=== PATIENT | male | born 1970 | race Asian ===

== ENCOUNTER 2020-11-09 11:30 | Emergency (ER) | payer OTHER ==
[~2020-11-09] VITALS: Ht 160 cm; Wt 70.0 kg
--- NOTE | 2020-11-09 13:29 | PHYS DOC ---
Past Medical History Past Medical History: Hypertension Past Surgical History: No Surgical History Smoking Status: Never Smoker Alcohol Use: None General Adult EDM: Chief Complaint: MULTIPLE COMPLAINTS HPI: HPI: Patient is a 50 year old Moldovan speaking male with history of HTN who presents with 1 month of cough, shortness of breath, N/V, myalgias. He has developed left-sided chest pain that is worse when he coughs. He has difficulty describing the quality of the pain. Does not radiate. Denies fever/chills. Cough is not productive. No diarrhea. No sick contacts. Has been fully vaccinated for Covid. Second shot was 3 months ago. Denies sick contacts. Has not sought medical care until today. Review of Systems: Review of Systems: Constitutional: Denies fever or chills. [] Eyes: Denies change in visual acuity. [] HENT: Denies nasal congestion or sore throat. [] Respiratory: Reports cough and shortness of breath. [] Cardiovascular: Reports left-sided chest pain. Denies edema. [] GI: Denies abdominal pain. Reports nausea/vomiting. Denies bloody stools or diarrhea. [] : Denies dysuria. [] Musculoskeletal: Denies back pain or joint pain. Reports diffuse myalgias [] Integument: Denies rash. [] Neurologic: Denies headache, focal weakness or sensory changes. [] Endocrine: Denies polyuria or polydipsia. [] Lymphatic: Denies swollen glands. [] Psychiatric: Denies depression or anxiety. [] Heart Score: C/O Chest Pain: Yes HEART Score for Chest Pain: HEART Score for Chest Pain Response (Comments) Value History Slighlty/Non-Suspicious 0 Total 0 Risk Factors: Risk Factors: DM, Current or recent (<one month) smoker, HTN, HLP, family history of CAD, obesity. Risk Scores: Score 0 - 3: 2.5% MACE over next 6 weeks - Discharge Home Score 4 - 6: 20.3% MACE over next 6 weeks - Admit for Clinical Observation Score 7 - 10: 72.7% MACE over next 6 weeks - Early Invasive Strategies Allergies: Allergies: Allergies Coded Allergies Type Severity Reaction Last Updated Verified No Known Drug Allergies 11/09/20 No Physical Exam: PE: Constitutional: Slightly diaphoretic. Ill-appearing but nontoxic.. [] HENT: Normocephalic, atraumatic, bilateral external ears normal, oropharynx moist, no oral exudates, nose normal. [] Eyes: PERRLA, EOMI, conjunctiva normal, no discharge. [] Neck: Normal range of motion, no tenderness, supple, no stridor. [] Cardiovascular:Heart rate regular rhythm, no murmur [] Lungs & Thorax: Left-sided and expiratory wheezes, right-sided rhonchi without wheezes. Normal work of breathing [] Abdomen: Bowel sounds normal, soft, no tenderness, no masses, no pulsatile masses. [] Skin: Warm, dry, no erythema, no rash. [] Back: No tenderness, no CVA tenderness. [] Extremities: No tenderness, no cyanosis, no clubbing, ROM intact, no edema. [] Neurologic: Alert and oriented X 3, normal motor function, normal sensory function, no focal deficits noted. [] Psychologic: Affect normal, judgement normal, mood normal. [] Current Patient Data: Vital Signs: Vital Signs Date Time Temp Pulse Resp B/P (MAP) Pulse Ox O2 Delivery O2 Flow Rate FiO2 11/09/20 13:02 75 25 113/77 (89) 97 Room Air 11/09/20 12:56 97.8 97.8 EKG: EKG: [] Radiology/Procedures: Radiology/Procedures: [] Impression: [facility] [address] [place], [place] [id number] IMAGING REPORT Signed PATIENT: ALTAGRACIA CHU ACCOUNT: [id number] : 1970 LOCATION: ER AGE: 50 SEX: M EXAM STATUS: REG ER ORD. PHYSICIAN: FRANCISCO MEIER MD REASON: COUGH, SOB, MYALGIAS, LEFT CHEST PAIN PROCEDURE: CHEST AP ONLY XR CHEST 1V CLINICAL INDICATIONS: Reason: COUGH, shortness of breath, MYALGIAS, LEFT CHEST Comparison: None available. Findings: No acute lung infiltrate or pleural effusion or pulmonary edema or lung mass or pneumothorax is seen. The heart size, pulmonary vasculature, mediastinum and both shun are unremarkable. IMPRESSION: No acute radiographic abnormality is seen. Electronically signed by: Michi Ardon MD (11/09/2020 1:37 PM) [id number] DICTATED and SIGNED BY: MICHI ARDON MD DATE: 11/09/20 [id number] Course & Med Decision Making: Course & Med Decision Making Pertinent Labs and Imaging studies reviewed. (See chart for details) Patient is a 50-year-old male with history of HTN who presents with 1 month of cough, fatigue, shortness of breath, N/V and now with left-sided chest pain. On arrival is afebrile and hemodynamically stable. Satting 97+ percent on room air. Auscultatory exam asymmetric with wheezes on the left and rhonchi on the right. We will check CXR, CMP, CBC, EKG, troponin and Covid test. 1329 Chest x-ray clear. Blood work reassuring. Troponin negative. Covid test negative on rapid. Given his wheezing, cough, congestion for the last month feel this is likely a bronchitis. Possibly recovering from a previous COVID infection. Given the duration feel it is appropriate to treat with a course of steroids and doxycycline. Patient stable for discharge. 1504 PPDai Disclaimer: PPDai Disclaimer: This electronic medical record was generated, in whole or in part, using a voice recognition dictation system. Departure Departure Impression: Primary Impression: Bronchitis Disposition: HOME / SELF CARE / HOMELESS Condition: STABLE Additional Instructions: Your blood test and chest x-ray were clear. Your rapid Covid test was negative. We are doing a more accurate test that will take until tomorrow to result. Please self isolate till you know the results of this test. Given the duration of your symptoms we will treat you with a steroid (anti- inflammatory medication) and a an antibiotic (doxycycline). Please take the full course of each. Please return to the emergency department if you develop worsening symptoms. If you do not have a PCP, please call the number for the [facility] at [phone]. Scripts Prednisone (PREDNISONE) 50 Mg Tablet 1 TAB PO DAILY, #5 TAB Prov: FRANCISCO MEIER MD 11/09/20 Doxycycline Monohydrate (DOXYCYCLINE MONOHYDRATE) 100 Mg Capsule 1 CAP PO BID for 7 Days, #14 CAP Prov: FRANCISCO MEIER MD 11/09/20 FRANCISCO MEIER MD Nov 09, 2020 13:29
--- NOTE | 2020-11-09 13:39 | RAD ---
XR CHEST 1V CLINICAL INDICATIONS: Reason: COUGH, shortness of breath, MYALGIAS, LEFT CHEST Comparison: None available. Findings: No acute lung infiltrate or pleural effusion or pulmonary edema or lung mass or pneumothora x is seen. The heart size, pulmonary vasculature, mediastinum and both shun are unremarkable. IMPRESSION: No acute radiographic abnormality is seen. Electronically signed by: Prabhu Ardon MD (11/09/2020 1:37 PM) [id number]
[2020-11-09 14:15] LABS: BASO # 0.1 x10^3/uL (0.0-0.2); BASO % 1 % (0-3); EOS # 0.4 x10^3/uL (0.0-0.7); EOS % 5 % (0-3); HEMATOCRIT 40.6 % (39.0-53.0); HEMOGLOBIN 13.9 g/dL (13.0-17.5); LYMPH # 2.9 x10^3/uL (1.0-4.8); LYMPH % 39 % (24-48); MEAN CORPUSCULAR HEMOGLOBIN 30 pg (25-35); MEAN CORPUSCULAR HGB CONC 34 g/dL (31-37); MEAN CORPUSCULAR VOLUME 87 fL (79-100); MONO # 0.5 x10^3/uL (0.0-1.1); MONO % 6 % (0-9); NEUT # 3.7 x10^3/uL (1.8-7.7); NEUT % 49 % (31-73); PLATELET COUNT 214 x10^3/uL (140-400); RED BLOOD COUNT 4.69 x10^6/uL (4.30-5.70); RED CELL DISTRIBUTION WIDTH 14.3 % (11.5-14.5); WHITE BLOOD COUNT 7.6 x10^3/uL (4.0-11.0)
[2020-11-09 14:35] LABS: CALCIUM 8.6 mg/dL (8.5-10.1); GFR 78.8; POTASSIUM 4.3 mmol/L (3.5-5.1)
[2020-11-09 14:44] LABS: ALBUMIN 3.6 g/dL (3.4-5.0); ALBUMIN/GLOBULIN RATIO 0.9 (1.0-1.7); TOTAL BILIRUBIN 0.6 mg/dL (0.2-1.0); TOTAL PROTEIN 7.6 g/dL (6.4-8.2)
[2020-11-09] MEDS ORDERED: PRED50TA PO (15:41)
[2020-11-09] MEDS ORDERED: DOXY-181 PO (15:41)
[2020-11-09 15:55] VITALS: BP 121/77
--- NOTE | 2020-11-09 16:39 | EKG ---
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
--- NOTE | 2020-11-10 11:34 | NUR ---
IP: Attempted to contact pt concerning covid results. No answer, left a voicemail to return the call.
--- NOTE | 2020-11-11 10:03 | NUR ---
Attempted a send time to contact pt concerning covid results. Again no answer.
== END 2020-11-09 16:10 | disposition home or self-care (01) ==
LOC: ER 11:30
DX: J40 Bronchitis, not specified as acute or chronic (principal); Z20.822 Contact with and (suspected) exposure to COVID-19; I10 Essential (primary) hypertension
CPT/HCPCS: 36415; 71045; 80053; 84484; 85025; 87426; 93005; 99285; U0003; U0005

== ENCOUNTER → 2020-12-26 | Outpatient (CLI) | payer OTHER ==
[~2020-12-26] MED LIST: DOXY-181 PO; PRED50TA PO
--- NOTE | 2020-12-26 14:41 | KCIC ---
Single view of the chest. 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 Instructions: / History: Comparison: Chest radiograph November 09, 2020 Findings: The left hemidiaphragm is poorly delineated, and there is questionable mild lateral pleural thickening. Findings could reflect a small effusion or atelectasis. No pneumothorax is seen. Heart s ize is normal. No acute osseous changes are identified. IMPRESSION: Possible trace left basilar effusion or atelectasis. Consider follow-up two-view chest ra diograph versus CT for further evaluation. Electronically signed by: Jimmy Hua MD (12/26/2020 2:38 PM) [id number]
== END ==
LOC: KCIC 10:14
PROVIDERS: ATTEND Internal Medicine Pulmonary Disease
DX: R76.11 Nonspecific reaction to tuberculin skin test without active tuberculosis (principal)
CPT/HCPCS: 71045

== ENCOUNTER 2021-06-01 21:15 | Emergency (ER) | payer OTHER ==
[~2021-06-01] VITALS: Ht 167.6 cm; Wt 73.0 kg
[2021-06-01] MEDS ORDERED: ACETAMINOPHEN 500 MG TABLET PO ONE (21:30)
[2021-06-01] MEDS ORDERED: IV NORMAL SALINE 1000ML BAG 1,000 ML IV ONE (21:30)
[2021-06-01 21:35] VITALS: BP 143/78
--- NOTE | 2021-06-01 21:55 | RAD ---
XR CHEST 1V History: Reason: fever / Spl. Instructions: / History: Comparison: December 26, 2020 Findings: Mild multifocal opacities bilaterally. No pleural effusion. Unchanged right blunting of the costophre alex angle. Unchanged heart size. No pneumothorax. Impression: 1. Mild multifocal ill-defined opacities bilaterally concerning for pneumonia including viral pneumo marcelino. Electronically signed by: Latrell Andrade DO (06/01/2021 9:53 PM) [facility]
--- NOTE | 2021-06-01 22:35 | RAD ---
CT HEAD/BRAIN WO History: Reason: AMS / Spl. Instructions: / History: Comparison: None. Technique: Noncontrast CT imaging was performed of the head. Exposure: One or more of the following individualized dose reduction techniques were utilized for thi s examination: 1. Automated exposure control 2. Adjustment of the mA and/or kV according to patient size 3. Use of iterative reconstruction technique. Findings: No intracranial hemorrhage. No mass effect. No hydrocephalus. Extra-axial spaces are unremarkable. Imaged orbits are unremarkable. Imaged paranasal sinuses and mastoid air cells are clear. No acute ca lvarial fracture. Impression: 1. No acute intracranial abnormality. Electronically signed by: Latrell Andrade DO (06/01/2021 10:32 PM) [facility]
[2021-06-01 22:36] LABS: BASO % 1 % (0-3); EOS # 0.3 x10^3/uL (0.0-0.7); EOS % 4 % (0-3); HEMATOCRIT 42.3 % (39.0-53.0); HEMOGLOBIN 14.1 g/dL (13.0-17.5); LYMPH # 1.4 x10^3/uL (1.0-4.8); LYMPH % 17 % (24-48); MEAN CORPUSCULAR HEMOGLOBIN 29 pg (25-35); MEAN CORPUSCULAR HGB CONC 33 g/dL (31-37); MEAN CORPUSCULAR VOLUME 86 fL (79-100); MONO # 0.7 x10^3/uL (0.0-1.1); MONO % 8 % (0-9); NEUT # 5.7 x10^3/uL (1.8-7.7); NEUT % 70 % (31-73); PLATELET COUNT 218 x10^3/uL (140-400); RED BLOOD COUNT 4.93 x10^6/uL (4.30-5.70); RED CELL DISTRIBUTION WIDTH 14.2 % (11.5-14.5); WHITE BLOOD COUNT 8.1 x10^3/uL (4.0-11.0)
[2021-06-01 22:51] LABS: CALCIUM 8.3 mg/dL (8.5-10.1); CREATININE 1.4 mg/dL (0.7-1.3); GFR 53.4; POTASSIUM 3.8 mmol/L (3.5-5.1)
[2021-06-01 22:58] LABS: ALBUMIN 3.8 g/dL (3.4-5.0); ALBUMIN/GLOBULIN RATIO 0.9 (1.0-1.7); TOTAL BILIRUBIN 0.5 mg/dL (0.2-1.0); TOTAL PROTEIN 7.9 g/dL (6.4-8.2)
[2021-06-01 23:06] LABS: INFLUENZA A PATIENT POSITIVE (NEGATIVE); INFLUENZA B PATIENT NEGATIVE (NEGATIVE)
[2021-06-01] MEDS ORDERED: OSELTAMIVIR 75 MG CAPSULE PO STA (23:15)
[2021-06-01] MEDS ORDERED: cefTRIAXone IV Push 1 GM VIAL. IVP ONE (23:15)
[2021-06-01] MEDS ORDERED: guaiFENesin/CODEINE 100mg/10mg 5 ML LIQUID PO STA (23:17)
--- NOTE | 2021-06-01 23:25 | PHYS DOC ---
Past Medical History Past Medical History: Hypertension (YG VÁZQUEZ COOK CHILI) Past Surgical History: No Surgical History (YG VÁZQUEZ COOK CHILI) Smoking Status: Never Smoker Alcohol Use: None (YG VÁZQUEZ COOK CHILI) General Adult EDM: Chief Complaint: FEVER HPI: HPI: Patient is a 50 year old male with history of hypertension presenting today complaining of a dry cough, shortness of breath, fever, symptoms began yesterday. Patient's also reports patient was confused yesterday. 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 [] HENT: Denies nasal congestion or sore throat. [] Respiratory: Reports cough and shortness of breath Cardiovascular: Denies chest pain or edema. [] GI: Denies abdominal pain, nausea, vomiting, bloody stools or diarrhea. [] : Denies dysuria. [] Musculoskeletal: Denies back pain or joint pain. [] Integument: Denies rash. [] Neurologic: Denies headache, focal weakness or sensory changes. [] Psychiatric: Denies depression or anxiety. [] (YG VÁZQUEZ COOK CHILI) Heart Score: C/O Chest Pain: N/A Risk Factors: Risk Factors: DM, Current or recent (<one month) smoker, HTN, HLP, family history of CAD, obesity. Risk Scores: Score 0 - 3: 2.5% MACE over next 6 weeks - Discharge Home Score 4 - 6: 20.3% MACE over next 6 weeks - Admit for Clinical Observation Score 7 - 10: 72.7% MACE over next 6 weeks - Early Invasive Strategies (YG VÁZQUEZ COOK CHILI) Current Medications: Current Medications Medications (Trade) Dose Ordered Sig/Gallito Start Time Stop Time Status Last Admin Dose Admin Acetaminophen (Tylenol) 1,000 mg 1X ONCE 06/01/21 21:30 06/01/21 21:32 DC 06/01/21 21:30 1,000 MG Ceftriaxone Sodium (Rocephin) 1 gm 1X ONCE 06/01/21 23:15 06/01/21 23:17 DC Oseltamivir Phosphate (Tamiflu) 75 mg 1X STAT 06/01/21 23:15 06/01/21 23:17 DC Sodium Chloride 1,000 ml @ 1,000 mls/hr 1X ONCE 06/01/21 21:30 06/01/21 22:29 DC 06/01/21 21:10 1,000 MLS/HR (YG VÁZQUEZ COOK CHILI) Allergies: Allergies: Allergies Coded Allergies Type Severity Reaction Last Updated Verified No Known Drug Allergies 11/09/20 No (YG VÁZQUEZ COOK CHILI) Physical Exam: PE: Constitutional: Well developed, well nourished, no acute distress, non-toxic appearance. [] HENT: Normocephalic, atraumatic, bilateral external ears normal, oropharynx moist, no oral exudates, nose normal. [] Eyes: PERRLA, EOMI, conjunctiva normal, no discharge. [] Neck: Normal range of motion, no tenderness, supple, no stridor. [] Cardiovascular:Heart rate regular rhythm, no murmur [] Lungs & Thorax: Bilateral breath sounds clear to auscultation [] Abdomen: Bowel sounds normal, soft, no tenderness, no masses, no pulsatile masses. [] Skin: Warm, dry, no erythema, no rash. [] Back: No tenderness, no CVA tenderness. [] Extremities: No tenderness, no cyanosis, no clubbing, ROM intact, no edema. [] Neurologic: Alert and oriented X 3, normal motor function, normal sensory function, no focal deficits noted. [] Psychologic: Affect normal, judgement normal, mood normal. [] (YG VÁZQUEZ COOK CHILI) Current Patient Data: Labs: Laboratory Tests Test 06/01/21 22:10 White Blood Count 8.1 x10^3/uL (4.0-11.0) Red Blood Count 4.93 x10^6/uL (4.30-5.70) Hemoglobin 14.1 g/dL (13.0-17.5) Hematocrit 42.3 % (39.0-53.0) Mean Corpuscular Volume 86 fL (79-100) Mean Corpuscular Hemoglobin 29 pg (25-35) Mean Corpuscular Hemoglobin Concent 33 g/dL (31-37) Red Cell Distribution Width 14.2 % (11.5-14.5) Platelet Count 218 x10^3/uL (140-400) Neutrophils (%) (Auto) 70 % (31-73) Lymphocytes (%) (Auto) 17 % (24-48) L Monocytes (%) (Auto) 8 % (0-9) Eosinophils (%) (Auto) 4 % (0-3) H Basophils (%) (Auto) 1 % (0-3) Neutrophils # (Auto) 5.7 x10^3/uL (1.8-7.7) Lymphocytes # (Auto) 1.4 x10^3/uL (1.0-4.8) Monocytes # (Auto) 0.7 x10^3/uL (0.0-1.1) Eosinophils # (Auto) 0.3 x10^3/uL (0.0-0.7) Basophils # (Auto) 0.0 x10^3/uL (0.0-0.2) Sodium Level 140 mmol/L (136-145) Potassium Level 3.8 mmol/L (3.5-5.1) Chloride Level 105 mmol/L (98-107) Carbon Dioxide Level 24 mmol/L (21-32) Anion Gap 11 (6-14) Blood Urea Nitrogen 18 mg/dL (8-26) Creatinine 1.4 mg/dL (0.7-1.3) H Estimated GFR (Cockcroft-Gault) 53.4 BUN/Creatinine Ratio 13 (6-20) Glucose Level 97 mg/dL (70-99) Lactic Acid Level 1.7 mmol/L (0.4-2.0) Calcium Level 8.3 mg/dL (8.5-10.1) L Total Bilirubin 0.5 mg/dL (0.2-1.0) Aspartate Amino Transferase (AST) 37 U/L (15-37) Alanine Aminotransferase (ALT) 53 U/L (16-63) Alkaline Phosphatase 146 U/L (46-116) H Troponin I High Sensitivity 5 ng/L (4-75) CU-Nds-X-Type Natriuretic Peptide 26 pg/mL (0-124) Total Protein 7.9 g/dL (6.4-8.2) Albumin 3.8 g/dL (3.4-5.0) Albumin/Globulin Ratio 0.9 (1.0-1.7) L Ethyl Alcohol Level < 10 mg/dL (0-10) Influenza Type A Antigen Positive (NEGATIVE) Influenza Type B Antigen Negative (NEGATIVE) SARS-CoV-2 Antigen (Rapid) Negative (NEGATIVE) Laboratory Tests 06/01/21 22:10 Laboratory Tests 06/01/21 22:10 (YG VÁZQUEZ Osbaldo MARIA) EKG: EKG: [] (YG VÁZQUEZ COOK CHILI) Radiology/Procedures: Radiology/Procedures: []PROCEDURE: CT HEAD WO CONTRAST CT HEAD/BRAIN WO History: Reason: AMS / Spl. Instructions: / History: Comparison: None. Technique: Noncontrast CT imaging was performed of the head. Exposure: One or more of the following individualized dose reduction techniques were utilized for this examination: 1. Automated exposure control 2. Adjustment of the mA and/or kV according to patient size 3. Use of iterative reconstruction technique. Findings: No intracranial hemorrhage. No mass effect. No hydrocephalus. Extra-axial spaces are unremarkable. Imaged orbits are unremarkable. Imaged paranasal sinuses and mastoid air cells are clear. No acute calvarial fracture. Impression: 1. No acute intracranial abnormality. Electronically signed by: Latrell Andrade DO (06/01/2021 10:32 PM) [facility] DICTATED and SIGNED BY: LATRELL ANDRADE DO DATE: 06/01/21 [id number] PROCEDURE: PORTABLE CHEST 1V XR CHEST 1V History: Reason: fever / Spl. Instructions: / History: Comparison: December 26, 2020 Findings: Mild multifocal opacities bilaterally. No pleural effusion. Unchanged right blunting of the costophrenic angle. Unchanged heart size. No pneumothorax. Impression: 1. Mild multifocal ill-defined opacities bilaterally concerning for pneumonia including viral pneumonia. Electronically signed by: Latrell Andrade DO (06/01/2021 9:53 PM) [email or web address] DICTATED and SIGNED BY: LATRELL ANDRADE DO DATE: 06/01/21 [id number] (GETOBYLisaYG Osbaldo COOK CHILI) Course & Med Decision Making: Course & Med Decision Making Pertinent Labs and Imaging studies reviewed. (See chart for details) This is a 50-year-old male patient presenting to the ED today complaining of a dry cough, shortness of breath and fever since yesterday. reported patient was confused yesterday. Patient arrives in the ED with a temperature of 100.4, heart rate 102. O2 sats 95% and above on room air CT of the head is negative. Patient is alert oriented x4 in the ED CBC, CMP with no acute findings. Chest x-ray noted for mild multifocal ill-defined opacities bilaterally concerning for pneumonia including viral pneumonia. Negative rapid Covid test, positive influenza A, negative influenza B. Started on Tamiflu, given Rocephin IV in the ED. Discharge to home with doxycycline and Tamiflu. Tylenol/Motrin for pain or fever. Instructed to rest, push fluids, maintain good hand hygiene, follow-up with PCP in 1 to 2 weeks (YG VÁZQUEZ APRN) Course & Med Decision Making Patients Care and treatment plan provided by ER Nurse Practitioner. I was not involved in this patients care but was available for consult. Patient's chart reviewed. (ANGELICA SLAUGHTER DO) Nicole Disclaimer: Nicole Disclaimer: This electronic medical record was generated, in whole or in part, using a voice recognition dictation system. (YG VÁZQUEZ APRN) Departure Departure Impression: Primary Impression: Fever Qualified Codes: R50.9 - Fever, unspecified Additional Impressions: Bilateral pneumonia Qualified Codes: J18.9 - Pneumonia, unspecified organism Influenza A Disposition: HOME / SELF CARE / HOMELESS Condition: STABLE Referrals: GARCÍA GRANADOS MD (PCP) follow up in 1-2 weeks Patient Instructions: Fever, Influenza A (H1N1), Pneumonia, Adult Additional Instructions: You tested positive for influenza A as well as pneumonia. Please take the prescribed medications as ordered, rest, push fluids, maintain good hydration. Follow-up with your doctor in 1 week. Come back to the ED at any point symptoms worsen Scripts Guaifenesin/Codeine Phosphate (GUAIFENESIN AC COUGH SYRUP) 473 Ml Liquid 5 ML PO Q6HRS PRN for cough and congestion MDD 30 Milliliter(s), #120 ML 0 Refills Prov: YG VÁZQUEZ APRN 06/01/21 Doxycycline Hyclate (DOXYCYCLINE HYCLATE) 100 Mg Tablet 1 TAB PO BID, #14 TAB Prov: YG VÁZQUEZ APRN 06/01/21 Oseltamivir Phosphate (TAMIFLU) 75 Mg Capsule 1 CAP PO BID, #10 CAP Prov: YG VÁZQUEZ APRN 06/01/21 YG VÁZQUEZ APRN Jun 01, 2021 23:25 ANGELICA SLAUGHTER DO Jun 02, 2021 18:09
[2021-06-01] MEDS ORDERED: OSEL75CA PO (23:47)
[2021-06-01] MEDS ORDERED: GUAI473L15 PO (23:47)
[2021-06-01] MEDS ORDERED: DOXY100T PO (23:47)
[2021-06-02] MEDS ORDERED: LIDOCAINE 1% PF 2 ML VIAL. INJ ONE (00:15)
[2021-06-02] MEDS ORDERED: cefTRIAXone IM 1 GM VIAL IM ONE (00:15)
--- NOTE | 2021-06-02 05:01 | EKG ---
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
== END 2021-06-02 01:30 | disposition home or self-care (01) ==
LOC: ER 21:15
DX: U07.1 COVID-19 (principal); J18.9 Pneumonia, unspecified organism; I10 Essential (primary) hypertension
CPT/HCPCS: 36415; 70450; 71045; 80053; 83605; 83880; 84145; 84484; 85025; 87040; 87428; 93005; 96360; 96372; 99285; C9803; G0480; J0696; J7030; U0003